=== PATIENT | male | born 1950 | race Caucasian/White ===

== ENCOUNTER 2017-08-28 10:17 | Inpatient (IN) | payer MEDICARE, BC ==
[~2017-08-28] VITALS: Ht 188 cm; Wt 114.6 kg
[~2017-08-28 10:17] MED LIST: HYDR-565 PO; METF500T PO; SOTA80TA69 PO
[2017-08-28 10:58] LABS: BASOPHILS % (AUTO) 0.1 % (0-1); EOSINOPHILS # (AUTO) 0.1 X10'3 (0-0.9); EOSINOPHILS % (AUTO) 1.4 % (0-6); HEMATOCRIT 41.7 % (42.0-52.0); HEMOGLOBIN 14.8 g/dl (14.0-17.9); LYMPHOCYTES # (AUTO) 1.2 X10'3 (1.1-4.8); LYMPHOCYTES % (AUTO) 21.7 % (21-51); MEAN CORPUSCULAR HEMOGLOBIN 34.1 PG (27.0-31.0); MEAN CORPUSCULAR HGB CONC 35.5 % (33.0-36.5); MEAN PLATELET VOLUME 7.9 FL (7.4-10.4); MONOCYTES # (AUTO) 0.4 X10'3 (0-0.9); MONOCYTES % (AUTO) 8.1 % (2-12); NEUTROPHILS # (AUTO) 3.8 X10'3 (1.8-7.7); NEUTROPHILS % (AUTO) 68.7 % (42-75); PLATELET COUNT 188 X10'3 (140-440); RED BLOOD COUNT 4.34 X10'6 (4.70-6.10); RED CELL DISTRIBUTION WIDTH 13.3 % (11.5-14.5); WHITE BLOOD COUNT 5.5 X10'3 (4.5-11.0)
[2017-08-28 11:06] LABS: PARTIAL THROMBOPLASTIN TIME 26 SECONDS (22-32)
[2017-08-28 11:12] LABS: ALANINE AMINOTRANSFERASE 49 U/L (12-78); ALBUMIN 4.1 G/DL (3.4-5.0); ALBUMIN/GLOBULIN RATIO 1.3 (1.1-1.5); ALKALINE PHOSPHATASE 78 IU/L (46-116); ANION GAP 10 (8-16); ASPARTATE AMINO TRANSFERASE 24 U/L (10-37); BILIRUBIN,TOTAL 0.7 MG/DL (0.1-1.0); BLOOD UREA NITROGEN 18 MG/DL (7-18); BUN/CREATININE RATIO 16.5 (5.4-32.0); CHLORIDE 104 MMOL/L (99-107); CREATININE 1.09 MG/DL (0.60-1.10); GLUCOSE 144 MG/DL (70-104); SODIUM 140 MMOL/L (135-145); TOTAL CARBON DIOXIDE 26.2 MMOL/L (24-32); TOTAL PROTEIN 7.2 G/DL (6.4-8.2); eGFR 67 ML/MIN
[2017-08-28] MEDS ORDERED: nitroGLYCERIN 0.4mg SUBLingual tab SL PRN (11:30)
[2017-08-28] MEDS ORDERED: metoprolol tartrate 25mg tablet PO ONE (11:30)
[2017-08-28] MEDS ORDERED: aspirin 81mg tab.chew PO ONE (11:30)
[2017-08-28] MEDS ORDERED: acetaminophen 325mg tablet PO PRN (11:55)
[2017-08-28] MEDS: normal saline 1000ml 1,000 ML IV SCH ×2 (11:55→21:55)
[2017-08-28] MEDS ORDERED: ondansetron/PF 4mg/2ml inj IV PRN (11:55)
[2017-08-28] MEDS ORDERED: morphine 2 MG/ML inj. syringe IV PRN (11:55)
[2017-08-28] MEDS ORDERED: mag hydrox/Alum hydrox/simeth 30ml oral suspension PO PRN (11:55)
[2017-08-28] MEDS ORDERED: morphine 4 MG/ML inj SYRINge IV PRN ×2 (11:55→12:00)
[2017-08-28] MEDS ORDERED: magnesium hydroxide 30ml (MOM) UD suspension PO PRN (11:55)
[2017-08-28 13:00] VITALS: BP 127/86
[2017-08-28] MEDS ORDERED: FLO0.4C PO (13:00)
[2017-08-28] MEDS ORDERED: ATOR20TA66 (13:02)
[2017-08-28] MEDS ORDERED: hydrALAZINE 20mg/ml inj. IV PRN (14:55)
[2017-08-28 15:00] VITALS: BP 131/69
[2017-08-28] MEDS: enoxaparin 100mg/ml syringe SUBCUT SCH ×2 (15:11→19:46)
[2017-08-28 19:00] VITALS: BP 117/69
[2017-08-28] MEDS ORDERED: heparin, porcine 5000 units/ml vial SQ SCH (20:00)
[2017-08-28] MEDS: tamsulosin 0.4mg capsule PO SCH (20:07)
[2017-08-28 23:00] VITALS: BP 136/76
[2017-08-29] VITALS (15 sets, daily range): BP systolic 107–138; BP diastolic 52–72
[2017-08-29 06:01] LABS: BASOPHILS % (AUTO) 0.5 % (0-1); EOSINOPHILS # (AUTO) 0.2 X10'3 (0-0.9); EOSINOPHILS % (AUTO) 3.3 % (0-6); HEMATOCRIT 38.7 % (42.0-52.0); HEMOGLOBIN 13.9 g/dl (14.0-17.9); LYMPHOCYTES # (AUTO) 1.3 X10'3 (1.1-4.8); LYMPHOCYTES % (AUTO) 27.4 % (21-51); MEAN CORPUSCULAR HEMOGLOBIN 34.3 PG (27.0-31.0); MEAN CORPUSCULAR HGB CONC 35.9 % (33.0-36.5); MEAN CORPUSCULAR VOLUME 95.5 FL (78-98); MEAN PLATELET VOLUME 8.3 FL (7.4-10.4); MONOCYTES # (AUTO) 0.5 X10'3 (0-0.9); MONOCYTES % (AUTO) 9.8 % (2-12); NEUTROPHILS # (AUTO) 2.8 X10'3 (1.8-7.7); PLATELET COUNT 170 X10'3 (140-440); RED BLOOD COUNT 4.06 X10'6 (4.70-6.10); RED CELL DISTRIBUTION WIDTH 13.2 % (11.5-14.5); WHITE BLOOD COUNT 4.7 X10'3 (4.5-11.0)
[2017-08-29 06:27] LABS: ALBUMIN 3.4 G/DL (3.4-5.0); ANION GAP 10 (8-16); BLOOD UREA NITROGEN 16 MG/DL (7-18); BUN/CREATININE RATIO 15.5 (5.4-32.0); CALCIUM 8.9 MG/DL (8.5-10.1); CHLORIDE 104 MMOL/L (99-107); CREATININE 1.03 MG/DL (0.60-1.10); GLUCOSE 150 MG/DL (70-104); POTASSIUM 4.3 MMOL/L (3.5-5.1); SODIUM 139 MMOL/L (135-145); TOTAL CARBON DIOXIDE 24.6 MMOL/L (24-32); eGFR 72 ML/MIN
[2017-08-29] MEDS: normal saline 1000ml 1,000 ML IV SCH ×2 (07:55→17:55)
[2017-08-29] MEDS: enoxaparin 100mg/ml syringe SUBCUT SCH ×2 (08:00→20:45)
[2017-08-29] MEDS: atorvastatin 20mg tablet PO SCH (08:41)
[2017-08-29] MEDS: aspirin 81mg tablet.DR PO SCH (08:41)
[2017-08-29] MEDS: tamsulosin 0.4mg capsule PO SCH ×2 (08:41→20:45)
[2017-08-29] MEDS: lisinopril 10 MG tablet PO SCH (08:41)
[2017-08-29] MEDS ORDERED: nitroGLYCERIN-Tridil 50MG/D5W 250 ML IV ONE (09:21)
[2017-08-29] MEDS ORDERED: iohexol 350MG/ML 100ml bottle IV ONE (09:21)
[2017-08-29] MEDS ORDERED: heparin 1,000unit/ml 10ml vial 10 ML ONE (09:21)
[2017-08-29] MEDS ORDERED: LIDOcaine 1%/PF (10mg/ml) 5ml vial ONE (09:21)
[2017-08-29] MEDS ORDERED: iohexol 350 MG/ML 50ML vial IV ONE (09:21)
[2017-08-29] MEDS ORDERED: fentaNYL/PF 50MCG/1 ML 2ML syringe ONE (10:00)
[2017-08-29] MEDS ORDERED: diphenhydrAMINE 50 mg/ml inj ONE (10:00)
[2017-08-29] MEDS ORDERED: midazolam 2 mg/2 ml injection ONE (10:01)
[2017-08-29 13:51] LABS: ISTAT HGB ART 13.6 g/dl (14.0-18.0); ISTAT Hct ART 40 %PCV (42-52); ISTAT O2 SATURATION ARTERIAL 91 % (95-98); ISTAT SOURCE ART
[2017-08-29 13:51] LABS: ISTAT Hct MIX 38 %PCV (42-52); ISTAT O2 SATURATION MIX VENOUS 67 % (60-80); ISTAT SOURCE MIX
[2017-08-30 03:00] VITALS: BP 115/62
[2017-08-30 05:37] LABS: BASOPHILS % (AUTO) 0.2 % (0-1); EOSINOPHILS # (AUTO) 0.2 X10'3 (0-0.9); EOSINOPHILS % (AUTO) 3.2 % (0-6); HEMATOCRIT 40.3 % (42.0-52.0); HEMOGLOBIN 14.3 g/dl (14.0-17.9); LYMPHOCYTES # (AUTO) 1.7 X10'3 (1.1-4.8); LYMPHOCYTES % (AUTO) 22.5 % (21-51); MEAN CORPUSCULAR HEMOGLOBIN 34.2 PG (27.0-31.0); MEAN CORPUSCULAR HGB CONC 35.5 % (33.0-36.5); MEAN CORPUSCULAR VOLUME 96.3 FL (78-98); MEAN PLATELET VOLUME 8.1 FL (7.4-10.4); MONOCYTES # (AUTO) 0.7 X10'3 (0-0.9); MONOCYTES % (AUTO) 8.6 % (2-12); NEUTROPHILS % (AUTO) 65.5 % (42-75); PLATELET COUNT 181 X10'3 (140-440); RED BLOOD COUNT 4.18 X10'6 (4.70-6.10); RED CELL DISTRIBUTION WIDTH 13.2 % (11.5-14.5); WHITE BLOOD COUNT 7.6 X10'3 (4.5-11.0)
[2017-08-30 05:57] LABS: ALBUMIN 3.5 G/DL (3.4-5.0); ANION GAP 8 (8-16); BLOOD UREA NITROGEN 16 MG/DL (7-18); BUN/CREATININE RATIO 15.1 (5.4-32.0); CALCIUM 8.6 MG/DL (8.5-10.1); CHLORIDE 103 MMOL/L (99-107); CREATININE 1.06 MG/DL (0.60-1.10); GLUCOSE 139 MG/DL (70-104); POTASSIUM 4.2 MMOL/L (3.5-5.1); SODIUM 138 MMOL/L (135-145); TOTAL CARBON DIOXIDE 26.8 MMOL/L (24-32); eGFR 69 ML/MIN
[2017-08-30 06:00] VITALS: BP 113/66
[2017-08-30] MEDS: atorvastatin 20mg tablet PO SCH (08:51)
[2017-08-30] MEDS: aspirin 81mg tablet.DR PO SCH (08:51)
[2017-08-30] MEDS: tamsulosin 0.4mg capsule PO SCH (08:51)
[2017-08-30] MEDS: lisinopril 10 MG tablet PO SCH (08:51)
[2017-08-30] MEDS: enoxaparin 100mg/ml syringe SUBCUT SCH (08:52)
[2017-08-30 11:00] VITALS: BP 128/75
[2017-08-30] MEDS ORDERED: MAGN400O6 PO (11:54)
[2017-08-30] MEDS ORDERED: LISI10TA4 PO (11:54)
[2017-08-30] MEDS ORDERED: ATOR20TA66 PO (11:54)
[2017-08-30] MEDS ORDERED: ASPI-1071 PO (11:54)
== END 2017-08-30 12:30 | disposition home or self-care (01) | DRG 287 ==
LOC: ER 10:17 → ED HOLD 11:55 → PCU 3S 13:12
PROVIDERS: ADMIT Family Medicine; ATTEND Emergency Medicine
PROC: 4A023N8 Measurement of Cardiac Sampling and Pressure, Bilateral, Percutaneous Approach (ICD-10-PCS; principal; 2017-08-29)
PROC: B2111ZZ Fluoroscopy of Multiple Coronary Arteries using Low Osmolar Contrast (ICD-10-PCS; 2017-08-29)
PROC: B2151ZZ Fluoroscopy of Left Heart using Low Osmolar Contrast (ICD-10-PCS; 2017-08-29)
DX: R07.9 Chest pain, unspecified (principal); I48.0 Paroxysmal atrial fibrillation; I25.110 Atherosclerotic heart disease of native coronary artery with unstable angina pectoris; E11.9 Type 2 diabetes mellitus without complications; E78.5 Hyperlipidemia, unspecified; G47.33 Obstructive sleep apnea (adult) (pediatric); E66.9 Obesity, unspecified; I10 Essential (primary) hypertension; F41.9 Anxiety disorder, unspecified; I49.3 Ventricular premature depolarization; M19.90 Unspecified osteoarthritis, unspecified site; Z96.643 Presence of artificial hip joint, bilateral; Z96.652 Presence of left artificial knee joint; Z79.899 Other long term (current) drug therapy; Z85.46 Personal history of malignant neoplasm of prostate; Z68.32 Body mass index [BMI] 32.0-32.9, adult
CPT/HCPCS: 36415; 71045; 80048; 80053; 82803; 82948; 83036; 83880; 84484; 85014; 85025; 85610; 85730; 87070; 93005; 93306; 93460; 99152; 99153; 99285; A4620; A6257; A6449; C1769; C1894; J1200; J1644; J1650; J2001; J2250; J3010; J3490; J7030; Q9967

== ENCOUNTER 2022-05-06 22:01 | Inpatient (IN) | payer MEDICARE, OTHER ==
[~2022-05-06] VITALS: Ht 188 cm; Wt 111.4 kg
[~2022-05-06 22:01] MED LIST changes: +ATOR20TA66 PO; -HYDR-565 PO; -METF500T PO; -SOTA80TA69 PO
[2022-05-06] MEDS ORDERED: ondansetron/PF 4mg/2ml inj IV ONE (22:25)
[2022-05-06] MEDS ORDERED: fentaNYL/PF 50MCG/1 ML 2ML syringe IV ONE (22:25)
[2022-05-06 22:57] LABS: BASOPHILS # (AUTO) 0.1 X10'3 (0-0.2); BASOPHILS % (AUTO) 0.6 % (0-1); EOSINOPHILS % (AUTO) 0.3 % (0-6); HEMATOCRIT 43.9 % (42.0-52.0); HEMOGLOBIN 15.2 g/dl (14.0-17.9); LYMPHOCYTES # (AUTO) 1.2 X10'3 (1.1-4.8); LYMPHOCYTES % (AUTO) 10.7 % (21-51); MEAN CORPUSCULAR HEMOGLOBIN 32.9 PG (27.0-31.0); MEAN CORPUSCULAR HGB CONC 34.6 g/dL (33.0-36.5); MEAN PLATELET VOLUME 8.7 FL (7.4-10.4); MONOCYTES # (AUTO) 0.5 X10'3 (0-0.9); MONOCYTES % (AUTO) 4.9 % (2-12); NEUTROPHILS # (AUTO) 9.2 X10'3 (1.8-7.7); NEUTROPHILS % (AUTO) 83.5 % (42-75); PLATELET COUNT 194 X10'3 (140-440); RED BLOOD COUNT 4.62 X10'6 (4.70-6.10); RED CELL DISTRIBUTION WIDTH 13.1 % (11.5-14.5)
[2022-05-06 23:09] LABS: ALANINE AMINOTRANSFERASE 49 U/L (12-78); ALBUMIN 4.2 G/DL (3.4-5.0); ALBUMIN/GLOBULIN RATIO 1.2 (1.1-1.5); ALKALINE PHOSPHATASE 81 IU/L (46-116); ANION GAP 10 (8-16); ASPARTATE AMINO TRANSFERASE 40 U/L (10-37); BILIRUBIN,TOTAL 1.1 MG/DL (0.1-1.0); BLOOD UREA NITROGEN 20 MG/DL (7-18); BUN/CREATININE RATIO 18.5 (5.4-32.0); CHLORIDE 98 MMOL/L (99-107); CREATININE 1.08 MG/DL (0.60-1.10); GLUCOSE 239 MG/DL (70-104); LIPASE 85 U/L (73-393); POTASSIUM 4.1 MMOL/L (3.5-5.1); SODIUM 133 MMOL/L (135-145); TOTAL CARBON DIOXIDE 24.9 MMOL/L (24-32); TOTAL PROTEIN 7.7 G/DL (6.4-8.2); eGFR 67 ML/MIN
[2022-05-06] MEDS ORDERED: normal saline 1000ml 1,000 ML IV SCH (23:45)
[2022-05-07] MEDS ORDERED: fentaNYL/PF 50MCG/1 ML 2ML syringe IV ONE (00:20)
[2022-05-07] MEDS ORDERED: potassium Cl 20 mEq SR tablet PO PRN ×4 (01:25→01:30)
[2022-05-07] MEDS ORDERED: acetaminophen 325mg tablet PO PRN ×3 (01:25→01:30)
[2022-05-07] MEDS ORDERED: magnesium hydroxide 30ml (MOM) UD suspension PO PRN (01:25)
[2022-05-07] MEDS ORDERED: magnesium Cl slow-release 64mg tablet PO PRN ×2 (01:25→01:30)
[2022-05-07] MEDS ORDERED: ondansetron/PF 4mg/2ml inj IV PRN ×2 (01:25→01:30)
[2022-05-07] MEDS ORDERED: potassium Cl 40MEQ/1/2NS 520ml 520 ML IV PRN ×2 (01:25→01:30)
[2022-05-07] MEDS ORDERED: mag hydrox/Alum hydrox/simeth 30ml oral suspension PO PRN (01:25)
[2022-05-07] MEDS ORDERED: magnesium 4gm in 100ml NS 100 ML IV PRN ×2 (01:25→01:30)
[2022-05-07] MEDS ORDERED: morphine 2 MG/ML inj. syringe IV PRN ×2 (01:30)
[2022-05-07] MEDS ORDERED: HYDROcodone/acetaminophen 10/325mg tab PO PRN (01:30)
[2022-05-07] MEDS ORDERED: HYDROcodone/acetaminophen 5mg/325mg tablet PO PRN (01:30)
[2022-05-07] MEDS: normal saline 1000ml 1,000 ML IV SCH ×3 (01:48→22:11)
[2022-05-07 02:25] LABS: CLARITY,URINE CLEAR (Clear); COLOR,URINE YELLOW (Yellow); GLUCOSE, URINE >=1000 mg/dl (Neg); KETONES,URINE 40 mg/dl (Neg); LEUKOCYTE ESTERASE ,URINE NEGATIVE (Neg); NITRITES, URINE NEGATIVE (Neg); OCCULT BLOOD,URINE TRACE-INTACT (Neg); PROTEIN,URINE NEGATIVE (Neg); UROBILINOGEN,URINE 0.2 E.U/dL (0.2-1.0)
[2022-05-07 02:35] LABS: UA COLLECTION TYPE CLN CATCH MIDSTREAM
[2022-05-07 02:42] LABS: BACTERIA,URINE NONE SEEN /HPF (Neg); MUCUS STRANDS NONE SEEN /LPF (Neg); RBC,URINE NONE SEEN /HPF (0-2); SQUAMOUS EPITHELIAL CELL,UR FEW /LPF (FEW); WBC,URINE NONE SEEN /HPF (0-4)
[2022-05-07] MEDS ORDERED: METF-1203 PO (05:23)
[2022-05-07] MEDS ORDERED: FLO0.4C PO (05:23)
[2022-05-07] MEDS ORDERED: PIOG30TA71 PO (05:23)
--- NOTE | 2022-05-07 07:00 | NUR ---
PT URINATED ON THE BED DUE TO URINAL NOT AVAILABLE TO THE PT ,CHANGED THE BED LINEN AND PUT ON THE GOWN .PLACED THE PT ON MONITOR .DISCUSSED THE POC TO THE PT . AT [facility].
[2022-05-07 07:39] LABS: BASOPHILS % (AUTO) 0.2 % (0-1); EOSINOPHILS % (AUTO) 0.1 % (0-6); HEMATOCRIT 42.3 % (42.0-52.0); HEMOGLOBIN 14.8 g/dl (14.0-17.9); LYMPHOCYTES # (AUTO) 0.8 X10'3 (1.1-4.8); LYMPHOCYTES % (AUTO) 9.9 % (21-51); MEAN CORPUSCULAR HEMOGLOBIN 33.3 PG (27.0-31.0); MEAN CORPUSCULAR VOLUME 95.3 FL (78-98); MEAN PLATELET VOLUME 8.7 FL (7.4-10.4); MONOCYTES # (AUTO) 0.5 X10'3 (0-0.9); MONOCYTES % (AUTO) 6.4 % (2-12); NEUTROPHILS # (AUTO) 6.7 X10'3 (1.8-7.7); NEUTROPHILS % (AUTO) 83.4 % (42-75); PLATELET COUNT 181 X10'3 (140-440); RED BLOOD COUNT 4.44 X10'6 (4.70-6.10); RED CELL DISTRIBUTION WIDTH 13.2 % (11.5-14.5); WHITE BLOOD COUNT 8.1 X10'3 (4.5-11.0)
[2022-05-07] MEDS: K and/or MAG REPLACEMENT MC SCH ×2 (08:00→20:00)
[2022-05-07] MEDS ORDERED: K and/or MAG REPLACEMENT MC SCH (08:00)
[2022-05-07] MEDS: docusate sod 100mg capsule PO SCH ×2 (08:00→20:00)
[2022-05-07 08:02] LABS: MAGNESIUM 2.2 MG/DL (1.5-2.4); POTASSIUM 4.2 MMOL/L (3.5-5.1)
[2022-05-07] MEDS: heparin, porcine 5000 units/ml vial SQ SCH ×2 (09:00→22:16)
--- NOTE | 2022-05-07 11:44 | NUR ---
PT HAD SMALL SOFT BM.PASSING GAS,DENIES ANY ABDOMINAL PAIN .WILL CONT TO MONITOR.
--- NOTE | 2022-05-07 12:21 | NUR ---
DR SLAUGHTER AT BEDSIDE.
--- NOTE | 2022-05-07 16:50 | NUR ---
DR FELIPE AT BEDSIDE.
--- NOTE | 2022-05-07 17:10 | NUR ---
PT RESTING IN BED ,VITALS WNL ,WILL CONT TO MONITOR.
[2022-05-07 19:40] VITALS: BP 159/75
--- NOTE | 2022-05-07 19:40 | NUR ---
n/g tuble placed in ER Addendum: 05/08/22 at 0116 by Davida Jaime RN Amended: Links added.
[2022-05-07] MEDS: tamsulosin 0.4mg capsule PO SCH (20:00)
[2022-05-07] MEDS ORDERED: temazepam 15mg capsule PO PRN (21:00)
[2022-05-07 22:00] VITALS: BP 134/69
[2022-05-08 06:00] VITALS: BP 136/63
[2022-05-08 06:02] LABS: BASOPHILS % (AUTO) 0.3 % (0-1); EOSINOPHILS # (AUTO) 0.2 X10'3 (0-0.9); EOSINOPHILS % (AUTO) 2.5 % (0-6); HEMATOCRIT 40.7 % (42.0-52.0); HEMOGLOBIN 13.9 g/dl (14.0-17.9); LYMPHOCYTES # (AUTO) 1.3 X10'3 (1.1-4.8); LYMPHOCYTES % (AUTO) 19.2 % (21-51); MEAN CORPUSCULAR HEMOGLOBIN 32.8 PG (27.0-31.0); MEAN CORPUSCULAR HGB CONC 34.1 g/dL (33.0-36.5); MEAN CORPUSCULAR VOLUME 96.1 FL (78-98); MEAN PLATELET VOLUME 8.9 FL (7.4-10.4); MONOCYTES # (AUTO) 0.7 X10'3 (0-0.9); NEUTROPHILS # (AUTO) 4.5 X10'3 (1.8-7.7); PLATELET COUNT 167 X10'3 (140-440); RED BLOOD COUNT 4.24 X10'6 (4.70-6.10); RED CELL DISTRIBUTION WIDTH 13.1 % (11.5-14.5); WHITE BLOOD COUNT 6.8 X10'3 (4.5-11.0)
[2022-05-08 06:11] LABS: ALANINE AMINOTRANSFERASE 39 U/L (12-78); ALBUMIN 3.2 G/DL (3.4-5.0); ALBUMIN/GLOBULIN RATIO 1.1 (1.1-1.5); ALKALINE PHOSPHATASE 64 IU/L (46-116); ANION GAP 7 (8-16); ASPARTATE AMINO TRANSFERASE 26 U/L (10-37); BILIRUBIN,TOTAL 0.8 MG/DL (0.1-1.0); BLOOD UREA NITROGEN 18 MG/DL (7-18); BUN/CREATININE RATIO 19.6 (5.4-32.0); CALCIUM 8.6 MG/DL (8.5-10.1); CHLORIDE 103 MMOL/L (99-107); CREATININE 0.92 MG/DL (0.60-1.10); GLUCOSE 148 MG/DL (70-104); MAGNESIUM 2.1 MG/DL (1.5-2.4); POTASSIUM 3.8 MMOL/L (3.5-5.1); SODIUM 136 MMOL/L (135-145); TOTAL CARBON DIOXIDE 25.8 MMOL/L (24-32); eGFR 81 ML/MIN
--- NOTE | 2022-05-08 06:41 | NUR ---
Patient in room [facility]. I have received report from pAT RN and had the opportunity to ask questions and assume patient care.
--- NOTE | 2022-05-08 07:02 | NUR ---
Nutrition consult: Pt admitted w/ partial small bowel obstruction per EMR. Pt had NG placed for decompression and symptoms seem to be resolving per MD note. Currently NPO. Recommend advancing to Regular diet as tolerated. Addendum: 05/08/22 at [address] Amended: Links added.
[2022-05-08] MEDS: tamsulosin 0.4mg capsule PO SCH (08:00)
[2022-05-08] MEDS: docusate sod 100mg capsule PO SCH (08:00)
[2022-05-08] MEDS: K and/or MAG REPLACEMENT MC SCH (08:00)
[2022-05-08] MEDS ORDERED: atorvastatin 20mg tablet PO SCH (08:00)
[2022-05-08] MEDS: heparin, porcine 5000 units/ml vial SQ SCH (08:42)
[2022-05-08 08:55] LABS: HEMOGLOBIN A1C 8.4 % (4.5-6.2)
[2022-05-08] MEDS: normal saline 1000ml 1,000 ML IV SCH (09:16)
--- NOTE | 2022-05-08 10:14 | NUR ---
Page Sent promotional table spacer PAGER ID: [phone] MESSAGE: [phone] Aggie, do you want the pt to take po meds Flomax and Lipitor through the NG or just hold for now? thanks abe [phone]
--- NOTE | 2022-05-08 10:17 | NUR ---
per dr barbour non admin pills for pt and NG is clamped as of 0840.
[2022-05-08 11:00] VITALS: BP 151/67
--- NOTE | 2022-05-08 11:18 | NUR ---
per dr Patel, DC NG tube and have him eat some food with a CC diet. If he can tolerate he can be discharged.
--- NOTE | 2022-05-08 11:21 | NUR ---
Page Sent PAGER ID: [phone] MESSAGE: per dr Bonner, ROBERT NG and have pt eat lunch if he can tolerate the hospitalist may discharge pt... I will let you know how he does after lunch. abe [phone]
--- NOTE | 2022-05-08 11:53 | NUR ---
as clinical instructor, i reviewed student nurse charting
--- NOTE | 2022-05-08 15:35 | NUR ---
Page Sent PAGER ID: [phone] MESSAGE: [phone] a Aggie Pt states he feels fine and is ready to go home. let me know if you would like to see him before he goes. thanks abe [phone]
--- NOTE | 2022-05-08 16:05 | NUR ---
pt is stable for discharge, iv cannula is intact and iv DC, reviewed all discharge with pt and everything signed, pt was escorted down to the lobby and left in a private vehicle.
== END 2022-05-08 16:00 | disposition home or self-care (01) | DRG 389 ==
LOC: ER 22:01 → ED HOLD 05-07 01:30 → SUR 3N 05-07 19:30
PROVIDERS: ADMIT Internal Medicine; ATTEND Family Medicine
PROC: 0D9670Z Drainage of Stomach with Drainage Device, Via Natural or Artificial Opening (ICD-10-PCS; principal; 2022-05-06)
DX: K56.609 Unspecified intestinal obstruction, unspecified as to partial versus complete obstruction (principal); E87.1 Hypo-osmolality and hyponatremia; K42.9 Umbilical hernia without obstruction or gangrene; F10.90 Alcohol use, unspecified, uncomplicated; R74.8 Abnormal levels of other serum enzymes; C61 Malignant neoplasm of prostate; E11.9 Type 2 diabetes mellitus without complications; E78.5 Hyperlipidemia, unspecified; Z92.3 Personal history of irradiation
CPT/HCPCS: 36415; 74176; 80053; 81001; 82948; 83036; 83605; 83690; 83735; 84132; 84145; 85025; 87040; 87081; 96361; 96374; 96375; 97161; 99285; G0378; J1644; J2405; J3010; J7030

== ENCOUNTER 2024-03-26 15:19 | Outpatient (CLI) | payer MEDICARE, OTHER ==
[~2024-03-26 15:19] MED LIST changes: +FLO0.4C PO; +METF-1203 PO; +PIOG30TA71 PO
== END 2024-03-26 23:59 | disposition home or self-care (01) ==
LOC: RAD 15:19
PROVIDERS: ATTEND Otolaryngology
DX: Z91.89 Other specified personal risk factors, not elsewhere classified (principal)
CPT/HCPCS: 74230